=== PATIENT | male | born 1985 | race Hispanic/Latino ===

== ENCOUNTER → 2024-03-29 | Outpatient (REF) | payer OTHER ==
[~2024-03-29] MED LIST: ALLERGY MEDICINE PO; IBUPROFEN200 MG PO; OMEPRAZOLE40 MG PO
== END ==
LOC: US 08:07
PROVIDERS: ATTEND Nurse Practitioner
DX: R14.0 Abdominal distension (gaseous) (principal); K29.70 Gastritis, unspecified, without bleeding; K76.0 Fatty (change of) liver, not elsewhere classified
CPT/HCPCS: 76700

== ENCOUNTER → 2024-04-25 | Outpatient (REF) | payer OTHER | LOC: NM 08:07 | PROVIDERS: ATTEND Internal Medicine Gastroenterology | DX: R14.0 Abdominal distension (gaseous) (principal); K76.0 Fatty (change of) liver, not elsewhere classified | CPT/HCPCS: 78227; A9537 ==